=== PATIENT | female | born 1960 | race Caucasian/White ===

== ENCOUNTER → 2016-07-10 | Outpatient (CLI) | payer OTHER ==
[~2016-07-10] MED LIST: ADVAIR HFA120 INHALA IH; ALBUTEROL SULF8.5 GM IH; ALEVE220 MG PO; AMITRIPTYLINE100 MG PO; ASPIR 8181 M1 PO; ASPIR-LOW81 MG PO; ASPIRIN325 MG PO; ATIVAN1 MG PO; ATROVENT H200 INHALA IH; AVENTYL,PAMELOR25 MG PO; AZITHROMYCIN500 M1 PO; BENTYL20 MG PO; BUTRANS1 EAC3 TD; CHANTIX1 MG PO; CIPRO500 MG PO; COMBIVENT RESPIM4 GM IH; CYANOCOBALAM1000 MCG PO; CYCLOBENZAPRINE10 MG PO; CYMBALTA30 MG PO; CYMBALTA60 MG; CYMBALTA60 MG PO; DAILY VALUE1 EACH PO; DAILY VITE1 EAC1 PO; DICLOFENAC SODI50 MG PO; ELAVIL50 MG PO; ENDOCET 5-3251 EACH PO; FLAGYL500 MG PO; FLEXERIL10 MG PO; FLONASE16 G1 BOTH NARES; FLOVENT 22120 INHALA IH; KLONOPIN0.5 M1 PO; LEVAQUIN750 MG PO; LIBRIUM10 MG PO; LIBRIUM25 MG PO; LORTAB 5-325 M1 EACH PO; LYRICA50 MG PO; LYRICA75 MG; MELOXICAM7.5 MG PO; METOPROLOL SUCC25 MG PO; METRONIDAZOLE500 MG PO; MOBIC15 MG PO; MOTRIN600 MG PO; MOTRIN800 MG PO; MUCINEX D ER T1 EACH PO; NAPROSYN500 MG PO; NAPROXEN500 MG PO; NEURONTIN300 MG PO; NICODERM CQ1 EACH TD; NORCO 5/3251 TABLET PO; OXYCODONE10 MG; PAMELOR25 MG PO; PERCOCET 5/31 TABLET PO; PHENERGAN-CODE120 ML PO; PREDNISONE20 MG PO; PREDNISONE5 MG PO; PROAIR HFA8.5 GM IH; PROMETHAZINE HC25 M1 PO; ROBAXIN500 MG PO; SPIRIVA RESPIMAT4 GM IH; SUBOXONE 4 MG-1 EACH SL; SYMBICORT60 INHALA1 IH; SYMBICORT60 INHALAT IH; TESSALON PERLE100 MG PO; VISTARIL50 MG PO; VITAMIN A8000 UNIT PO; VITAMIN B-6100 MG PO; VITAMIN B1 PO; VITAMIN C + RO500 MG PO; ZITHROMAX250 MG PO; ZOFRAN ODT8 MG PO; ZOFRAN4 MG PO; [UNRECOGNIZED DRUG - OTHER] PO
== END | disposition home or self-care (01) ==
LOC: RES 08:55
DX: Z02.71 Encounter for disability determination (principal)
CPT/HCPCS: 94010; 94729; 94760

== ENCOUNTER 2016-07-29 17:46 | Emergency (ER) | payer OTHER ==
[~2016-07-29] VITALS: Ht 160 cm; Wt 53.8 kg
[2016-07-29 18:59] LABS: HEMATOCRIT 45.1 % (36.0-46.0); MCHC 35.5 G/DL (30.0-36.0); MCV 98.7 FL (83-99); MEAN PLAT.VOLUME 10.3 uM^3 (9.5-12.4); PLATELET COUNT 166 K/uL (156-360); RBC DIS.WIDTH-CV 11.8 % (11.8-14.6); RBC DIS.WIDTH-SD 42.2 % (39-53); RED BLOOD COUNT 4.57 M/uL (3.80-5.20); WHITE BLOOD COUNT 10.2 K/uL (4.1-10.2)
[2016-07-29 19:10] LABS: CHLORIDE 96 mEq/L (99-109); POTASSIUM 3.4 mEq/L (3.7-5.4); SODIUM 135 mEq/L (136-147)
[2016-07-29 19:12] LABS: GLUCOSE 106 mg/dL (70-99)
[2016-07-29 19:14] LABS: ANION GAP 11 MEQ/L (2-14); TOTAL BILIRUBIN 1.7 mg/dL (0.0-1.0)
[2016-07-29 19:16] LABS: ALKALINE PHOSPHATASE 66 IU/L (3-129); GFR ESTIMATE (CALCULATED) > 59 mL/min/
[2016-07-29 19:17] LABS: UREA NITROGEN (BUN) 14 mg/dL (9-23)
[2016-07-29 19:19] LABS: LIPASE 8 U/L (1.0-51.0)
[2016-07-29 19:29] LABS: ADD MIUA? YES; BILIRUBIN NEGATIVE; BLOOD NEGATIVE; COLOR YELLOW ((YELLOW)); GLUCOSE (STRIP) 50; KETONES NEGATIVE; LEUKOCYTES NEGATIVE; NITRITE NEGATIVE; PROTEIN (STRIP) 100; SPECIFIC GRAVITY 1.024 (1.000-1.030)
[2016-07-29 19:47] LABS: BACTERIA NONE SEEN /HPF; EPITHELIAL CELLS RARE /HPF; GRANULAR CASTS 0-5 /LPF; MUCUS 1+ /LPF; UCUL ADDED? NO; WHITE BLOOD CELLS 0-5 /HPF (0-5)
[2016-07-29] MEDS ORDERED: ZOFRAN ODT4 MG PO (21:57)
[2016-07-29 22:15] VITALS: BP 170/95
== END 2016-07-29 22:16 | disposition home or self-care (01) ==
LOC: EME 17:46
PROVIDERS: Emergency Medicine
DX: K52.9 Noninfective gastroenteritis and colitis, unspecified (principal)
CPT/HCPCS: 74177; 80053; 81003; 83605; 83690; 85027; 93005; 99281; 99285; J2270; J2405; J7030

== ENCOUNTER 2016-07-31 12:22 | Observation (INO) | payer OTHER ==
[~2016-07-31] VITALS: Ht 160 cm; Wt 56.1 kg
[~2016-07-31 12:22] MED LIST changes: +ZOFRAN ODT4 MG PO
[2016-07-31 14:02] LABS: EOSINOPHIL (%) 0 % (0-5); HEMATOCRIT 44.4 % (36.0-46.0); IMMATURE GRANULOCYTE (%) 0.3 % (0.0-0.7); IMMATURE GRANULOCYTE COUNT 0.3 K/uL; LYMPHOCYTE COUNT 1.2 K/uL (1.0-2.8); MCH 34.6 PG (29.0-34.0); MCHC 35.6 G/DL (30.0-36.0); MCV 97.4 FL (83-99); MEAN PLAT.VOLUME 10.3 uM^3 (9.5-12.4); MONOCYTE (%) 8.2 % (3-12); MONOCYTE COUNT 0.9 K/uL (0-0.8); NEUTROPHIL (%) 80.7 % (45-76); NEUTROPHIL COUNT 9.2 K/uL (1.8-6.4); PLATELET COUNT 141 K/uL (156-360); RBC DIS.WIDTH-CV 11.4 % (11.8-14.6); RED BLOOD COUNT 4.56 M/uL (3.80-5.20); WHITE BLOOD COUNT 11.4 K/uL (4.1-10.2)
[2016-07-31 14:14] LABS: CHLORIDE 92 mEq/L (99-109); POTASSIUM 3.9 mEq/L (3.7-5.4); SODIUM 132 mEq/L (136-147)
[2016-07-31 14:17] LABS: GLUCOSE 104 mg/dL (70-99)
[2016-07-31 14:18] LABS: ANION GAP 10 MEQ/L (2-14)
[2016-07-31 14:19] LABS: TOTAL BILIRUBIN 1.8 mg/dL (0.0-1.0)
[2016-07-31 14:20] LABS: ALKALINE PHOSPHATASE 50 IU/L (3-129); GFR ESTIMATE (CALCULATED) > 59 mL/min/
[2016-07-31 14:21] LABS: D-DIMER ELISA 0.38 mg/L FEU (< 0.57); UREA NITROGEN (BUN) 15 mg/dL (9-23)
[2016-07-31 14:26] LABS: TROP-I INTERPRETATION NEGATIVE; TROPONIN-I < 0.01 ng/mL (0.0-0.30)
[2016-07-31] MEDS ORDERED: ASPIR-LOW81 MG PO (15:45)
[2016-07-31] MEDS ORDERED: LORAZEPAM1 MG PO (15:47)
[2016-07-31] MEDS ORDERED: PERCOCET 7.51 TABLET PO (15:48)
[2016-07-31] MEDS ORDERED: GABAPENTIN600 MG PO (15:49)
[2016-07-31] MEDS ORDERED: DICLOFENAC SODI75 MG PO (15:49)
[2016-07-31 18:19] VITALS: BP 180/109
[2016-07-31 19:57] LABS: TROP-I INTERPRETATION NEGATIVE; TROPONIN-I 0.02 ng/mL (0.0-0.30)
[2016-08-01 00:30] VITALS: BP 135/94
[2016-08-01 02:05] LABS: TROP-I INTERPRETATION NEGATIVE; TROPONIN-I < 0.01 ng/mL (0.0-0.30)
[2016-08-01 03:58] VITALS: BP 111/65
[2016-08-01 06:42] LABS: ANION GAP 6 MEQ/L (2-14); CHLORIDE 103 MEQ/L (99-109); GFR ESTIMATE (CALCULATED) > 59 mL/min/; GLUCOSE 98 mg/dL (70-99); SAMPLE HEMOLYSIS CHECK 0; SAMPLE ICTERIC CHECK 0; SAMPLE LIPEMIA CHECK 0; UREA NITROGEN (BUN) 10 mg/dL (9-23)
[2016-08-01 06:44] LABS: POTASSIUM 3.1 MEQ/L (3.7-5.4); SODIUM 140 MEQ/L (136-147)
[2016-08-01 07:05] LABS: HEMATOCRIT 39.8 % (36.0-46.0); MCH 33.6 PG (29.0-34.0); MCHC 33.4 G/DL (30.0-36.0); MCV 100.5 FL (83-99); MEAN PLAT.VOLUME 10.4 uM^3 (9.5-12.4); PLATELET COUNT 128 K/uL (156-360); RBC DIS.WIDTH-SD 43.8 % (39-53); RED BLOOD COUNT 3.96 M/uL (3.80-5.20); WHITE BLOOD COUNT 6.5 K/uL (4.1-10.2)
[2016-08-01 08:42] VITALS: BP 135/89
[2016-08-02] MEDS ORDERED: MULTI-VITAMIN-1 EACH PO (14:52)
[2016-08-02] MEDS ORDERED: VOLTAREN75 MG PO (16:29)
== END 2016-08-01 13:50 | disposition home or self-care (01) ==
LOC: EME 12:22 → EDOF 16:19 → 5WEST 16:19
PROVIDERS: Emergency Medicine; Hospitalist; Student in an Organized Health Care Education/Training Program
DX: R07.89 Other chest pain (principal); R19.7 Diarrhea, unspecified; R11.2 Nausea with vomiting, unspecified; I10 Essential (primary) hypertension; J44.9 Chronic obstructive pulmonary disease, unspecified; I27.2 Other secondary pulmonary hypertension; I36.1 Nonrheumatic tricuspid (valve) insufficiency; G89.29 Other chronic pain; M54.9 Dorsalgia, unspecified; F41.9 Anxiety disorder, unspecified; F32.9 Major depressive disorder, single episode, unspecified; F17.210 Nicotine dependence, cigarettes, uncomplicated; M19.90 Unspecified osteoarthritis, unspecified site
CPT/HCPCS: 71010; 80048; 80053; 83630; 84484; 85025; 85027; 85379; 87493; 87506; 93005; 94640; 99202; 99281; 99285; G0378; J1644; J2270; J2405; J7030; J7042; S0028

== ENCOUNTER 2016-08-02 10:37 | Observation (INO) | payer OTHER ==
[~2016-08-02] VITALS: Ht 160 cm; Wt 50.3 kg
[~2016-08-02 10:37] MED LIST changes: +DICLOFENAC SODI75 MG PO; +GABAPENTIN600 MG PO; +LORAZEPAM1 MG PO; +PERCOCET 7.51 TABLET PO
[2016-08-02 11:49] LABS: EOSINOPHIL (%) 0.3 % (0-5); IMMATURE GRANULOCYTE (%) 0.3 % (0.0-0.7); INSTRUMENT ABS NEUTROPHIL CT 8.2 K/uL; LYMPHOCYTE COUNT 1.7 K/uL (1.0-2.8); MCH 34.8 PG (29.0-34.0); MCHC 35.3 G/DL (30.0-36.0); MCV 98.4 FL (83-99); MEAN PLAT.VOLUME 10.5 uM^3 (9.5-12.4); MONOCYTE (%) 5.9 % (3-12); MONOCYTE COUNT 0.6 K/uL (0-0.8); NEUTROPHIL (%) 77.5 % (45-76); NEUTROPHIL COUNT 8.2 K/uL (1.8-6.4); PLATELET COUNT 154 K/uL (156-360); RBC DIS.WIDTH-CV 11.1 % (11.8-14.6); RBC DIS.WIDTH-SD 40.8 % (39-53); RED BLOOD COUNT 4.37 M/uL (3.80-5.20)
[2016-08-02 11:55] LABS: WHITE BLOOD COUNT 10.6 K/uL (4.1-10.2)
[2016-08-02 11:57] LABS: CHLORIDE 91 mEq/L (99-109); POTASSIUM 3.3 mEq/L (3.7-5.4); SODIUM 133 mEq/L (136-147)
[2016-08-02 11:59] LABS: GLUCOSE 97 mg/dL (70-99)
[2016-08-02 12:01] LABS: ANION GAP 12 MEQ/L (2-14)
[2016-08-02 12:03] LABS: ALKALINE PHOSPHATASE 57 IU/L (3-129); GFR ESTIMATE (CALCULATED) > 59 mL/min/
[2016-08-02 12:04] LABS: UREA NITROGEN (BUN) 7 mg/dL (9-23)
[2016-08-02 12:06] LABS: LIPASE 20 U/L (1.0-51.0)
[2016-08-02 12:57] LABS: ADD MIUA? NO; BILIRUBIN NEGATIVE; BLOOD NEGATIVE; COLOR YELLOW ((YELLOW)); GLUCOSE (STRIP) NEGATIVE; KETONES NEGATIVE; LEUKOCYTES NEGATIVE; NITRITE NEGATIVE; PROTEIN (STRIP) NEGATIVE; SPECIFIC GRAVITY 1.006 (1.000-1.030); UCUL ADDED? NO; UROBILINOGEN 0.2 MG/DL (0.2-1.0)
[2016-08-02] MEDS ORDERED: MULTI-VITAMIN-1 EACH PO (14:52)
[2016-08-02] MEDS ORDERED: VOLTAREN75 MG PO (16:29)
[2016-08-02 20:59] VITALS: BP 123/81
[2016-08-03 00:08] VITALS: BP 130/76
[2016-08-03 04:30] VITALS: BP 118/85
[2016-08-03 07:50] LABS: ALKALINE PHOSPHATASE 33 IU/L (3-129); ANION GAP 6 MEQ/L (2-14); CHLORIDE 100 MEQ/L (99-109); GFR ESTIMATE (CALCULATED) > 59 mL/min/; GLUCOSE 88 mg/dL (70-99); POTASSIUM 3.2 MEQ/L (3.7-5.4); SAMPLE HEMOLYSIS CHECK 0; SAMPLE ICTERIC CHECK 0; SAMPLE LIPEMIA CHECK 0; SODIUM 139 MEQ/L (136-147); TOTAL BILIRUBIN 0.6 MG/DL (0.0-1.0); UREA NITROGEN (BUN) 4 mg/dL (9-23)
[2016-08-03 08:03] LABS: EOSINOPHIL (%) 2.3 % (0-5); EOSINOPHIL COUNT 0.1 K/uL (0-0.3); HEMATOCRIT 34.6 % (36.0-46.0); IMMATURE GRANULOCYTE (%) 0.4 % (0.0-0.7); INSTRUMENT ABS NEUTROPHIL CT 3.7 K/uL; LYMPHOCYTE COUNT 1.1 K/uL (1.0-2.8); MCH 34.8 PG (29.0-34.0); MCHC 33.8 G/DL (30.0-36.0); MEAN PLAT.VOLUME 10.1 uM^3 (9.5-12.4); MONOCYTE (%) 7.2 % (3-12); MONOCYTE COUNT 0.4 K/uL (0-0.8); NEUTROPHIL (%) 69.6 % (45-76); NEUTROPHIL COUNT 3.7 K/uL (1.8-6.4); PLATELET COUNT 123 K/uL (156-360); RBC DIS.WIDTH-SD 45.5 % (39-53)
[2016-08-03 08:40] LABS: RED BLOOD COUNT 3.36 M/uL (3.80-5.20); WHITE BLOOD COUNT 5.3 K/uL (4.1-10.2)
[2016-08-03 08:41] VITALS: BP 117/73
[2016-08-03 12:10] VITALS: BP 133/82
[2016-08-03 16:00] VITALS: BP 137/84
[2016-08-03 20:00] VITALS: BP 137/90
[2016-08-04 01:00] VITALS: BP 142/77
[2016-08-04 04:10] VITALS: BP 141/84
[2016-08-04 07:41] LABS: HEMATOCRIT 36.5 % (36.0-46.0); MCH 34.2 PG (29.0-34.0); MCV 100.6 FL (83-99); MEAN PLAT.VOLUME 9.9 uM^3 (9.5-12.4); PLATELET COUNT 122 K/uL (156-360); RBC DIS.WIDTH-CV 11.9 % (11.8-14.6); RBC DIS.WIDTH-SD 43.8 % (39-53); RED BLOOD COUNT 3.63 M/uL (3.80-5.20); WHITE BLOOD COUNT 5.3 K/uL (4.1-10.2)
[2016-08-04 07:49] VITALS: BP 130/73
[2016-08-04 07:55] LABS: ANION GAP 8 MEQ/L (2-14); CHLORIDE 96 MEQ/L (99-109); GFR ESTIMATE (CALCULATED) > 59 mL/min/; GLUCOSE 89 mg/dL (70-99); POTASSIUM 3.4 MEQ/L (3.7-5.4); SAMPLE HEMOLYSIS CHECK 0; SAMPLE ICTERIC CHECK 0; SAMPLE LIPEMIA CHECK 0; SODIUM 138 MEQ/L (136-147); UREA NITROGEN (BUN) 3 mg/dL (9-23)
[2016-08-04] MEDS ORDERED: ENDOCET 5-3251 EACH PO (10:04)
[2016-08-04 11:49] VITALS: BP 136/87
== END 2016-08-04 13:08 | disposition home or self-care (01) ==
LOC: EXP 10:37 → EME 10:37 → EDOF 17:45 → 5WEST 20:06
PROVIDERS: Emergency Medicine; Internal Medicine; Nurse Practitioner Adult Health
DX: R10.9 Unspecified abdominal pain (principal); R19.7 Diarrhea, unspecified; R11.2 Nausea with vomiting, unspecified; G89.29 Other chronic pain; R07.9 Chest pain, unspecified; I10 Essential (primary) hypertension; F41.1 Generalized anxiety disorder; J44.9 Chronic obstructive pulmonary disease, unspecified; F32.9 Major depressive disorder, single episode, unspecified; M19.90 Unspecified osteoarthritis, unspecified site; F17.200 Nicotine dependence, unspecified, uncomplicated
CPT/HCPCS: 74177; 80048; 80053; 81003; 83630; 83690; 85025; 85027; 87177; 87329; 87493; 94640; 94799; 99281; 99285; G0378; J1170; J1644; J2270; J2405; J2765; J3010; J3480; J7030; S0028

== ENCOUNTER → 2017-06-16 | Outpatient (CLI) | payer OTHER ==
[~2017-06-16] VITALS: Ht 160 cm; Wt 48.5 kg
[~2017-06-16] MED LIST changes: +ALBUTEROL; +FLONASE ALLERG9.9 ML BOTH NARES; +MULTI-VITAMIN-1 EACH PO; +PERCOCET 10/1 TABLET PO; +PROVENTIL,2.5 MG/3 M IH; +SUBOXONE 8 MG-1 EAC2 SL; +VOLTAREN75 MG PO
== END | disposition home or self-care (01) ==
LOC: AMB 04-04 08:30
PROC: 0DJ08ZZ Inspection of Upper Intestinal Tract, Via Natural or Artificial Opening Endoscopic (ICD-10-PCS; principal; 2017-06-16)
DX: R13.10 Dysphagia, unspecified (principal); Z68.1 Body mass index [BMI] 19.9 or less, adult; I10 Essential (primary) hypertension; J44.9 Chronic obstructive pulmonary disease, unspecified; G89.4 Chronic pain syndrome; M47.812 Spondylosis without myelopathy or radiculopathy, cervical region; F41.1 Generalized anxiety disorder; K21.9 Gastro-esophageal reflux disease without esophagitis; F43.10 Post-traumatic stress disorder, unspecified; Z80.3 Family history of malignant neoplasm of breast; Z80.1 Family history of malignant neoplasm of trachea, bronchus and lung; F17.200 Nicotine dependence, unspecified, uncomplicated; F10.21 Alcohol dependence, in remission; Z88.8 Allergy status to other drugs, medicaments and biological substances
CPT/HCPCS: J2250

== ENCOUNTER 2017-07-12 16:59 | Inpatient (IN) | payer OTHER ==
[~2017-07-12] VITALS: Ht 160 cm; Wt 45.0 kg
[~2017-07-12 16:59] MED LIST changes: -ALBUTEROL; +DUONEB 2.5-0.5 M3 ML AEROSOL
[2017-07-12 17:21] LABS: HEMATOCRIT 41.2 % (36.0-46.0); HEMOGLOBIN 14.2 G/DL (11.9-15.5); MCH 35.2 PG (29.0-34.0); MCHC 34.5 G/DL (30.0-36.0); MCV 102.2 FL (83-99); PLATELET COUNT 158 K/uL (156-360); RBC DIS.WIDTH-CV 12.1 % (11.8-14.6); RBC DIS.WIDTH-SD 45.9 % (39-53); RED BLOOD COUNT 4.03 M/uL (3.80-5.20)
[2017-07-12 17:42] LABS: TROP-I INTERPRETATION NEGATIVE; TROPONIN-I 0.01 ng/mL (0.0-0.30)
[2017-07-12 18:06] LABS: ALBUMIN 3.6 G/DL (3.2-4.8); CHLORIDE 98 MEQ/L (99-109); POTASSIUM 3.7 MEQ/L (3.7-5.4); SODIUM 137 MEQ/L (136-147); TOTAL BILIRUBIN 0.8 MG/DL (0.0-1.0)
[2017-07-12 18:12] LABS: ALKALINE PHOSPHATASE 81 IU/L (3-129); ALT (GPT) 11 IU/L (3-49); AST (GOT) 15 IU/L (2-34); CREATININE 0.4 MG/DL (0.6-1.3); GFR ESTIMATE (CALCULATED) > 59 mL/min/; GLUCOSE 107 mg/dL (70-99); TOTAL PROTEIN 6.4 G/DL (6.4-8.3); UREA NITROGEN (BUN) 7 mg/dL (9-23)
[2017-07-12] MEDS ORDERED: DUEXIS 800-26.1 EACH PO (19:16)
[2017-07-12] MEDS ORDERED: CELEXA10 MG PO (19:16)
[2017-07-12 19:35] LABS: TROP-I INTERPRETATION NEGATIVE; TROPONIN-I < 0.01 ng/mL (0.0-0.30)
[2017-07-12 19:51] LABS: LIPASE 6 U/L (1.0-51.0); SERUM ETHYL ALCOHOL < 10 mg/dL
[2017-07-12 20:30] VITALS: BP 101/55
[2017-07-13 07:01] VITALS: BP 99/54
[2017-07-13 07:34] LABS: TROP-I INTERPRETATION NEGATIVE; TROPONIN-I < 0.01 ng/mL (0.0-0.30)
[2017-07-13 09:07] LABS: THYROTROPIN (TSH) 0.28 MIU/L (0.4-5.5)
[2017-07-13 10:16] LABS: HEPATITIS C ANTIBODY Nonreactive; HIV-1/2 AB/AG COMBO Nonreactive
[2017-07-13 15:46] VITALS: BP 100/79
[2017-07-13 17:17] LABS: APPEARANCE CLEAR ((CLEAR)); BILIRUBIN NEGATIVE; BLOOD NEGATIVE; COLOR YELLOW ((YELLOW)); GLUCOSE (STRIP) >=500; KETONES NEGATIVE; LEUKOCYTES NEGATIVE; NITRITE NEGATIVE; PROTEIN (STRIP) NEGATIVE; SPECIFIC GRAVITY 1.018 (1.000-1.030); UCUL ADDED? NO
[2017-07-13 17:42] LABS: BENZODIAZEPINES, URINE SCREEN POSITIVE (200 ng/mL)
[2017-07-14 00:16] VITALS: BP 115/55
[2017-07-14 06:37] LABS: BASOPHIL (%) 0 % (0-1); EOSINOPHIL (%) 0 % (0-5); HEMATOCRIT 37.2 % (36.0-46.0); IMMATURE GRANULOCYTE (%) 0.4 % (0.0-0.7); LYMPHOCYTE (%) 19.8 % (15-42); LYMPHOCYTE COUNT 1.1 K/uL (1.0-2.8); MCH 34.2 PG (29.0-34.0); MCHC 32.8 G/DL (30.0-36.0); MCV 104.2 FL (83-99); MONOCYTE (%) 13.8 % (3-12); MONOCYTE COUNT 0.8 K/uL (0-0.8); NEUTROPHIL COUNT 3.7 K/uL (1.8-6.4); PLATELET COUNT 174 K/uL (156-360); RBC DIS.WIDTH-SD 47.1 % (39-53); RED BLOOD COUNT 3.57 M/uL (3.80-5.20); WHITE BLOOD COUNT 5.7 K/uL (4.1-10.2)
[2017-07-14 06:49] LABS: HEMOGLOBIN 12.2 G/DL (11.9-15.5)
[2017-07-14 06:55] LABS: ALKALINE PHOSPHATASE 66 IU/L (3-129); ALT (GPT) 12 IU/L (3-49); AST (GOT) 14 IU/L (2-34); CHLORIDE 104 MEQ/L (99-109); CREATININE 0.4 MG/DL (0.6-1.3); GFR ESTIMATE (CALCULATED) > 59 mL/min/; GLUCOSE 93 mg/dL (70-99); POTASSIUM 4.9 MEQ/L (3.7-5.4); SODIUM 141 MEQ/L (136-147); TOTAL BILIRUBIN 0.3 MG/DL (0.0-1.0); TOTAL PROTEIN 5.3 G/DL (6.4-8.3); UREA NITROGEN (BUN) 8 mg/dL (9-23)
[2017-07-14 08:00] VITALS: BP 139/76
[2017-07-14 15:49] VITALS: BP 158/79
[2017-07-14 23:40] VITALS: BP 138/79
[2017-07-15 06:06] LABS: BASOPHIL (%) 0.2 % (0-1); EOSINOPHIL (%) 0 % (0-5); HEMATOCRIT 36.7 % (36.0-46.0); HEMOGLOBIN 12.4 G/DL (11.9-15.5); IMMATURE GRANULOCYTE (%) 0.5 % (0.0-0.7); LYMPHOCYTE (%) 24.9 % (15-42); LYMPHOCYTE COUNT 1.5 K/uL (1.0-2.8); MCH 35.2 PG (29.0-34.0); MCHC 33.8 G/DL (30.0-36.0); MCV 104.3 FL (83-99); MONOCYTE (%) 9.2 % (3-12); MONOCYTE COUNT 0.5 K/uL (0-0.8); NEUTROPHIL (%) 65.2 % (45-76); NEUTROPHIL COUNT 3.8 K/uL (1.8-6.4); PLATELET COUNT 169 K/uL (156-360); RBC DIS.WIDTH-SD 46.4 % (39-53); RED BLOOD COUNT 3.52 M/uL (3.80-5.20); WHITE BLOOD COUNT 5.9 K/uL (4.1-10.2)
[2017-07-15 06:27] LABS: CHLORIDE 99 MEQ/L (99-109); CREATININE 0.4 MG/DL (0.6-1.3); GFR ESTIMATE (CALCULATED) > 59 mL/min/; POTASSIUM 4.2 MEQ/L (3.7-5.4); SODIUM 137 MEQ/L (136-147); UREA NITROGEN (BUN) 12 mg/dL (9-23)
[2017-07-15 06:29] LABS: GLUCOSE 118 mg/dL (70-99)
[2017-07-15 07:04] VITALS: BP 122/72
[2017-07-15] MEDS ORDERED: VENTOLIN HFA18 GM IH (10:51)
[2017-07-15] MEDS ORDERED: PREDNISONE20 MG PO (10:51)
[2017-07-15] MEDS ORDERED: STIOLTO RESPIMAT4 GM IH (10:51)
[2017-07-15] MEDS ORDERED: XANAX0.25 MG PO (10:51)
[2017-07-17 02:02] LABS: AP Bone Isoenzyme 34 % (28-66); AP Intestine Isoenzyme 15 % (1-24); AP Liver Isoenzyme 52 % (25-69); AP Macrohepatic Isoenzyme 0 % (<=0); AP Placental Isoenzyme 0 % (<=0); Alkaline Phosphatase, Total 81 U/L (33-130)
== END 2017-07-15 14:35 | disposition home or self-care (01) | DRG 191 ==
LOC: EME 16:59 → EDOF 19:16 → ENRESERV 19:17 → 5EAST 20:16 → EDOF 20:16 → ENRESERV 20:17 → 5EAST 21:59
PROVIDERS: Hospitalist; Nurse Practitioner Family; Physician Assistant Medical
DX: J44.1 Chronic obstructive pulmonary disease with (acute) exacerbation (principal); Z86.73 Personal history of transient ischemic attack (TIA), and cerebral infarction without residual deficits; I27.20 Pulmonary hypertension, unspecified; J44.0 Chronic obstructive pulmonary disease with (acute) lower respiratory infection; J20.9 Acute bronchitis, unspecified; R09.02 Hypoxemia; M79.7 Fibromyalgia; I25.2 Old myocardial infarction; F32.9 Major depressive disorder, single episode, unspecified; F41.1 Generalized anxiety disorder; G89.29 Other chronic pain; Z91.19 Patient's noncompliance with other medical treatment and regimen; I10 Essential (primary) hypertension; F17.200 Nicotine dependence, unspecified, uncomplicated; F41.0 Panic disorder [episodic paroxysmal anxiety]; F10.11 Alcohol abuse, in remission; R63.4 Abnormal weight loss; Z68.1 Body mass index [BMI] 19.9 or less, adult; Z86.19 Personal history of other infectious and parasitic diseases
CPT/HCPCS: 71046; 71275; 80048; 80053; 80306 90; 81003; 83690; 84075 90; 84080 90; 84439; 84443; 84484; 85025; 85027; 86803; 87389; 87502; 93005; 93306; 94640; 94640 76; 94799; 99202; 99281; 99285; G0480; J1650; J2405; J2765; J2920; J3010; J7030; J7512

== ENCOUNTER 2017-11-06 18:39 | Inpatient (IN) | payer OTHER ==
[~2017-11-06] VITALS: Ht 160 cm; Wt 43.4 kg
[~2017-11-06 18:39] MED LIST changes: +CELEXA10 MG PO; +DUEXIS 800-26.1 EACH PO; +STIOLTO RESPIMAT4 GM IH; +VENTOLIN HFA18 GM IH; +XANAX0.25 MG PO
[2017-11-06 18:59] LABS: HEMATOCRIT 42.5 % (36.0-46.0); HEMOGLOBIN 14.8 G/DL (11.9-15.5); MCH 35.9 PG (29.0-34.0); MCHC 34.8 G/DL (30.0-36.0); MCV 103.2 FL (83-99); PLATELET COUNT 166 K/uL (156-360); RBC DIS.WIDTH-CV 12.5 % (11.8-14.6); RBC DIS.WIDTH-SD 48.3 % (39-53); RED BLOOD COUNT 4.12 M/uL (3.80-5.20); WHITE BLOOD COUNT 6.9 K/uL (4.1-10.2)
[2017-11-06 19:20] LABS: CHLORIDE 94 mEq/L (99-109); POTASSIUM 4.7 mEq/L (3.7-5.4); SODIUM 134 mEq/L (136-147)
[2017-11-06 19:21] LABS: GLUCOSE 156 mg/dL (70-99)
[2017-11-06 19:25] LABS: CREATININE 0.5 mg/dL (0.6-1.3); GFR ESTIMATE (CALCULATED) > 59 mL/min/
[2017-11-06 19:26] LABS: UREA NITROGEN (BUN) 9 mg/dL (9-23)
[2017-11-06 19:36] LABS: TROP-I INTERPRETATION NEGATIVE; TROPONIN-I 0.26 ng/mL (0.0-0.30)
[2017-11-06] MEDS ORDERED: XTAMPZA ER9 MG PO (21:54)
[2017-11-06] MEDS ORDERED: OXYCODONE HCL10 MG PO (21:55)
[2017-11-06] MEDS ORDERED: SYMBICORT60 INHALAT IH (21:55)
[2017-11-06 22:57] LABS: ALBUMIN 3.8 g/dL (3.2-4.8)
[2017-11-06 23:00] LABS: TOTAL PROTEIN 6.9 g/dL (6.4-8.3)
[2017-11-06 23:02] LABS: TOTAL BILIRUBIN 0.7 mg/dL (0.0-1.0)
[2017-11-06 23:03] LABS: ALKALINE PHOSPHATASE 146 IU/L (3-129)
[2017-11-06 23:05] LABS: AST (GOT) 90 IU/L (2-34); DIRECT BILIRUBIN 0.4 mg/dL (0.0-0.3)
[2017-11-06 23:06] LABS: ALT (GPT) 65 IU/L (3-49)
[2017-11-06 23:07] LABS: LIPASE 14 U/L (1.0-51.0)
[2017-11-06 23:09] VITALS: BP 115/74
[2017-11-06 23:15] LABS: SERUM ETHYL ALCOHOL < 10 mg/dL
[2017-11-06 23:18] LABS: ACETAMINOPHEN (TYLENOL) < 10 mcg/mL (10-30); SALICYLATE < 5.0 MG/DL (15-30)
[2017-11-06 23:33] LABS: CHLORIDE 98 mEq/L (99-109); POTASSIUM 4.1 mEq/L (3.7-5.4); SODIUM 136 mEq/L (136-147)
[2017-11-06 23:35] LABS: GLUCOSE 142 mg/dL (70-99)
[2017-11-06 23:38] LABS: CREATININE 0.5 mg/dL (0.6-1.3); GFR ESTIMATE (CALCULATED) > 59 mL/min/
[2017-11-06 23:39] LABS: UREA NITROGEN (BUN) 8 mg/dL (9-23)
[2017-11-07] VITALS (7 sets, daily range): BP systolic 103–147; BP diastolic 66–104
[2017-11-07 05:32] LABS: HEMATOCRIT 43.8 % (36.0-46.0); HEMOGLOBIN 15.3 G/DL (11.9-15.5); MCH 36.2 PG (29.0-34.0); MCHC 34.9 G/DL (30.0-36.0); MCV 103.5 FL (83-99); PLATELET COUNT 173 K/uL (156-360); RBC DIS.WIDTH-CV 12.7 % (11.8-14.6); RBC DIS.WIDTH-SD 49.1 % (39-53); RED BLOOD COUNT 4.23 M/uL (3.80-5.20); WHITE BLOOD COUNT 5.5 K/uL (4.1-10.2)
[2017-11-07 05:59] LABS: CHLORIDE 98 MEQ/L (99-109); CREATININE 0.4 MG/DL (0.6-1.3); GFR ESTIMATE (CALCULATED) > 59 mL/min/; GLUCOSE 124 mg/dL (70-99); POTASSIUM 4.2 MEQ/L (3.7-5.4); SODIUM 134 MEQ/L (136-147); UREA NITROGEN (BUN) 8 mg/dL (9-23)
[2017-11-07 06:02] LABS: ABS NEUTROPHIL COUNT 4.9; ATYPICAL LYMPHOCYTE 0.9 %; BAND NEUTROPHILS 1.7 % (0-8.0); EOSINOPHIL ABS CT 0; LYMPHOCYTES 8.7 % (15.0-45.0); MONOCYTES 1.7 % (0-9.0); SMUDGE CELLS 12.2
[2017-11-07 08:40] LABS: TROP-I INTERPRETATION INDETERMINATE; TROPONIN-I 0.38 ng/mL (0.0-0.30)
[2017-11-07 12:23] LABS: TROP-I INTERPRETATION INDETERMINATE; TROPONIN-I 0.32 ng/mL (0.0-0.30)
[2017-11-08 00:18] VITALS: BP 111/78
[2017-11-08 01:05] LABS: TROP-I INTERPRETATION INDETERMINATE; TROPONIN-I 0.33 ng/mL (0.0-0.30)
[2017-11-08 03:41] VITALS: BP 94/61
[2017-11-08 06:12] LABS: TROP-I INTERPRETATION NEGATIVE; TROPONIN-I 0.24 ng/mL (0.0-0.30)
[2017-11-08 08:00] VITALS: BP 127/76
[2017-11-08] MEDS ORDERED: NICOTINE PATCH1 EAC1 TD (11:36)
[2017-11-08] MEDS ORDERED: CARVEDILOL12.5 MG PO (11:36)
[2017-11-08] MEDS ORDERED: LOSARTAN POTASS50 MG PO (11:36)
[2017-11-08] MEDS ORDERED: ATORVASTATIN CA40 MG PO (11:37)
[2017-11-09] MEDS ORDERED: FLONASE16 G1 BOTH NARES (18:14)
[2017-11-09] MEDS ORDERED: PRILOSEC20 MG PO (18:14)
== END 2017-11-08 13:30 | disposition home or self-care (01) | DRG 281 ==
LOC: EME 18:39 → EDOF 22:28 → 4SOUTH 22:28 → EDOF 22:28 → ENRESERV 22:32 → 4SOUTH 22:59 → 4EAST 11-07 10:40 → 4SOUTH 11-07 10:43 → ENRESERV 11-07 16:06 → CANRESERV 11-07 16:06 → ENRESERV 11-07 17:46 → 4EAST 11-07 20:58
PROVIDERS: Emergency Medicine; Internal Medicine; Nurse Practitioner Adult Health
PROC: B2111ZZ Fluoroscopy of Multiple Coronary Arteries using Low Osmolar Contrast (ICD-10-PCS; principal; 2017-11-07)
PROC: B2151ZZ Fluoroscopy of Left Heart using Low Osmolar Contrast (ICD-10-PCS; principal; 2017-11-07)
PROC: 4A023N7 Measurement of Cardiac Sampling and Pressure, Left Heart, Percutaneous Approach (ICD-10-PCS; principal; 2017-11-07)
DX: I21.4 Non-ST elevation (NSTEMI) myocardial infarction (principal); J44.1 Chronic obstructive pulmonary disease with (acute) exacerbation; M79.7 Fibromyalgia; F10.20 Alcohol dependence, uncomplicated; F41.1 Generalized anxiety disorder; F41.0 Panic disorder [episodic paroxysmal anxiety]; G89.4 Chronic pain syndrome; I25.10 Atherosclerotic heart disease of native coronary artery without angina pectoris; I27.20 Pulmonary hypertension, unspecified; F17.200 Nicotine dependence, unspecified, uncomplicated; J20.9 Acute bronchitis, unspecified; J44.0 Chronic obstructive pulmonary disease with (acute) lower respiratory infection; K80.20 Calculus of gallbladder without cholecystitis without obstruction; I50.9 Heart failure, unspecified; I11.0 Hypertensive heart disease with heart failure; E78.5 Hyperlipidemia, unspecified; F11.20 Opioid dependence, uncomplicated
CPT/HCPCS: 71046; 71275; 74176; 76705; 80048; 80048 91; 80076; 80306 90; 83690; 84484; 85025; 85027; 85379; 85730; 93005; 93308; 94640; 94799; 99202; 99281; 99285; C1769; C1887; C1894; G0378; G0480; J1630; J1644; J1885; J1956; J2060; J2250; J2270; J2405; J2765; J2930; J3010; S0028

== ENCOUNTER 2017-11-09 15:16 | Observation (INO) | payer OTHER ==
[~2017-11-09] VITALS: Ht 160 cm; Wt 45.3 kg
[~2017-11-09 15:16] MED LIST changes: +ATORVASTATIN CA40 MG PO; +CARVEDILOL12.5 MG PO; +LOSARTAN POTASS50 MG PO; +NICOTINE PATCH1 EAC1 TD; +OXYCODONE HCL10 MG PO; +XTAMPZA ER9 MG PO
[2017-11-09 15:58] LABS: HEMATOCRIT 43.7 % (36.0-46.0); HEMOGLOBIN 15.6 G/DL (11.9-15.5); MCH 36.4 PG (29.0-34.0); MCHC 35.7 G/DL (30.0-36.0); MCV 102.1 FL (83-99); PLATELET COUNT 217 K/uL (156-360); RBC DIS.WIDTH-CV 12.1 % (11.8-14.6); RBC DIS.WIDTH-SD 45.8 % (39-53); RED BLOOD COUNT 4.28 M/uL (3.80-5.20); WHITE BLOOD COUNT 12.3 K/uL (4.1-10.2)
[2017-11-09 16:09] LABS: CHLORIDE 96 mEq/L (99-109); POTASSIUM 4.2 mEq/L (3.7-5.4); SODIUM 134 mEq/L (136-147)
[2017-11-09 16:11] LABS: GLUCOSE 99 mg/dL (70-99)
[2017-11-09 16:15] LABS: CREATININE 0.5 mg/dL (0.6-1.3); GFR ESTIMATE (CALCULATED) > 59 mL/min/
[2017-11-09 16:16] LABS: UREA NITROGEN (BUN) 10 mg/dL (9-23)
[2017-11-09 16:19] LABS: TROP-I INTERPRETATION NEGATIVE; TROPONIN-I 0.17 ng/mL (0.0-0.30)
[2017-11-09 16:32] LABS: BASOPHIL (%) 0.2 % (0-1); EOSINOPHIL (%) 0.6 % (0-5); EOSINOPHIL COUNT 0.1 K/uL (0-0.3); HEMATOCRIT 45.8 % (36.0-46.0); HEMOGLOBIN 15.8 G/DL (11.9-15.5); IMMATURE GRANULOCYTE (%) 0.5 % (0.0-0.7); LYMPHOCYTE (%) 10.5 % (15-42); LYMPHOCYTE COUNT 1.4 K/uL (1.0-2.8); MCH 35.6 PG (29.0-34.0); MCHC 34.5 G/DL (30.0-36.0); MCV 103.2 FL (83-99); MONOCYTE (%) 8.7 % (3-12); MONOCYTE COUNT 1.2 K/uL (0-0.8); NEUTROPHIL (%) 79.5 % (45-76); NEUTROPHIL COUNT 10.5 K/uL (1.8-6.4); PLATELET COUNT 220 K/uL (156-360); RBC DIS.WIDTH-SD 45.8 % (39-53); RED BLOOD COUNT 4.44 M/uL (3.80-5.20); WHITE BLOOD COUNT 13.2 K/uL (4.1-10.2)
[2017-11-09 16:41] LABS: PTT 28.2 SEC (25-37)
[2017-11-09 16:57] LABS: APPEARANCE CLEAR ((CLEAR)); BILIRUBIN NEGATIVE; BLOOD NEGATIVE; COLOR STRAW ((YELLOW)); GLUCOSE (STRIP) NEGATIVE; KETONES NEGATIVE; LEUKOCYTES NEGATIVE; NITRITE NEGATIVE; PROTEIN (STRIP) NEGATIVE; SPECIFIC GRAVITY 1.008 (1.000-1.030); UCUL ADDED? NO; UROBILINOGEN 0.2 MG/DL (0.2-1.0)
[2017-11-09 17:03] LABS: TROP-I INTERPRETATION NEGATIVE; TROPONIN-I 0.18 ng/mL (0.0-0.30)
[2017-11-09 17:09] LABS: AMPHETAMINE NEGATIVE (500 ng/mL); BARBITURATES NEGATIVE (200 ng/mL); BENZODIAZEPINES NEGATIVE (150 ng/mL); BUPRENORPHINE NEGATIVE (10 ng/mL); COCAINE NEGATIVE (150 ng/mL); METHADONE NEGATIVE (200 ng/mL); METHAMPHETAMINE NEGATIVE (500 ng/mL); OPIATES (MORPHINE) PRESUMPTIVE POSITIVE (100 ng/mL); OXYCODONE NEGATIVE (100 ng/mL); PHENCYCLIDINE NEGATIVE (25 ng/mL); PROPOXYPHENE NEGATIVE (300 ng/mL); THC CANNABINOIDS NEGATIVE (50 ng/mL); TRICYCLIC ANTIDEPRESSANTS NEGATIVE (300 ng/mL)
[2017-11-09 17:19] LABS: AMYLASE 32 IU/L (1-118)
[2017-11-09 17:24] LABS: SERUM ETHYL ALCOHOL 35 mg/dL
[2017-11-09 17:28] LABS: LIPASE 15 U/L (1.0-51.0)
[2017-11-09] MEDS ORDERED: PRILOSEC20 MG PO (18:14)
[2017-11-09] MEDS ORDERED: FLONASE16 G1 BOTH NARES (18:14)
[2017-11-09 20:49] VITALS: BP 109/70
[2017-11-09 23:16] LABS: TROP-I INTERPRETATION NEGATIVE; TROPONIN-I 0.15 ng/mL (0.0-0.30)
[2017-11-10 03:43] VITALS: BP 101/58
[2017-11-10 05:40] LABS: HEMATOCRIT 44.3 % (36.0-46.0); HEMOGLOBIN 14.9 G/DL (11.9-15.5); MCH 35.6 PG (29.0-34.0); MCHC 33.6 G/DL (30.0-36.0); MCV 105.7 FL (83-99); PLATELET COUNT 202 K/uL (156-360); RBC DIS.WIDTH-CV 12.6 % (11.8-14.6); RBC DIS.WIDTH-SD 49.1 % (39-53); RED BLOOD COUNT 4.19 M/uL (3.80-5.20); WHITE BLOOD COUNT 8.4 K/uL (4.1-10.2)
[2017-11-10 06:12] LABS: CHLORIDE 99 MEQ/L (99-109); CREATININE 0.5 MG/DL (0.6-1.3); GFR ESTIMATE (CALCULATED) > 59 mL/min/; GLUCOSE 85 mg/dL (70-99); POTASSIUM 3.7 MEQ/L (3.7-5.4); SODIUM 140 MEQ/L (136-147); UREA NITROGEN (BUN) 10 mg/dL (9-23)
[2017-11-10 09:45] VITALS: BP 131/67
[2017-11-10] MEDS ORDERED: XANAX0.25 MG PO (12:45)
[2017-11-10 12:53] VITALS: BP 107/63
== END 2017-11-10 15:30 | disposition home or self-care (01) ==
LOC: EME 15:16 → ENRESERV 16:19 → CANRESERV 16:19 → EDOF 19:04 → 4SOUTH 19:04 → EDOF 19:04 → ENRESERV 19:10 → 4SOUTH 20:25
PROVIDERS: Emergency Medicine; Hospitalist; Nurse Practitioner Adult Health
DX: R07.89 Other chest pain (principal); R94.31 Abnormal electrocardiogram [ECG] [EKG]; G89.29 Other chronic pain; R10.9 Unspecified abdominal pain; J44.9 Chronic obstructive pulmonary disease, unspecified; I10 Essential (primary) hypertension; F41.9 Anxiety disorder, unspecified; I51.81 Takotsubo syndrome; I25.10 Atherosclerotic heart disease of native coronary artery without angina pectoris; F17.200 Nicotine dependence, unspecified, uncomplicated; K52.9 Noninfective gastroenteritis and colitis, unspecified; Z79.82 Long term (current) use of aspirin; M79.7 Fibromyalgia; Z88.5 Allergy status to narcotic agent; Z88.8 Allergy status to other drugs, medicaments and biological substances
CPT/HCPCS: 71046; 80048; 81003; 82150; 83690; 84484; 84999; 85025; 85027; 85610; 85730; 86850; 86900; 86901; 93005; 99202; 99281; 99285; G0378; G0480; J1644; J2270; J2405; J2765; J7030